=== PATIENT | female | born 1975 | race Caucasian/White ===

== ENCOUNTER → 2018-09-16 | Outpatient (CLI) | payer OTHER ==
--- NOTE | 2018-09-17 07:09 | REP ---
Clinical: Abnormal uterine bleeding . Technique: Transabdominal pelvic ultrasound followed by transvaginal examination for better evaluation of the endometrium and adnexa. Findings: Bladder is unremarkable and measures 9.6 x 9.5 x 7.1 cm . Normal anteverted uterus measures 11.1 x 3.9 x 5.1 cm . The endometrial complex measures 14.7 mm thickness. No discrete uterine or endometrial abnormalities are appreciated. Bilateral ovaries are normal in appearance. Right ovary measures 2.3 x 1.4 x 1.7 cm ; Left ovary measures 2.9 x 1.9 x 2.7 cm with 1.4 cm dominant follicle. No pelvic fluid or adnexal mass lesion . Impression: 1. normal pelvic ultrasound. Electronically Signed by Lalo Santiago MD 09/17/2018 07:01 A
== END ==
LOC: M RAD 10:12
PROVIDERS: ATTEND Specialist
DX: N93.9 Abnormal uterine and vaginal bleeding, unspecified (principal)

== ENCOUNTER 2018-10-23 12:46 | Day surgery (SDC) | payer OTHER ==
[~2018-10-23] VITALS: Ht 167.6 cm; Wt 99.3 kg
[~2018-10-23 12:46] MED LIST: CVS400CA PO; LIDOCAINE 1% MDV 20ML VIAL SQ PRN; LR 1,000 ML IV ONE; VITA500T PO; VITA500T3 PO; ZANTTAB PO
[2018-10-23 13:24] LABS: URINE PREG TEST NEGATIVE (NEGATIVE)
[2018-10-23 13:38] LABS: HEMATOCRIT 39.1 % (36.0-47.0); HEMOGLOBIN 12.9 g/dl (12.0-15.5); MEAN CORPUSCULAR HEMOGLOBIN 30.9 pg (27.0-33.0); MEAN CORPUSCULAR VOLUME 93.8 fl (80.0-96.0); PLATELET COUNT, AUTOMATED 296 10^3/uL (150-450); RED BLOOD COUNT 4.17 10^6/uL (4.00-5.40)
[2018-10-23] MEDS ORDERED: ONDANSETRON 4MG/2ML VIAL (J2405) As Ordered ONE (14:11)
[2018-10-23] MEDS ORDERED: dexameTHASONE 4 MG/ML 1ML VIAL (J1100) As Ordered ONE (14:11)
[2018-10-23] MEDS ORDERED: PROPOFOL 200 MG/20 ML VIAL As Ordered ONE ×2 (14:11→14:57)
[2018-10-23] MEDS ORDERED: LIDOCAINE 2% INJ 100 MG/5 ML SDV (FOR ANES.) As Ordered ONE (14:11)
[2018-10-23] MEDS ORDERED: KETOROLAC 60 MG/2 ML VIAL (J1885) As Ordered ONE (14:11)
[2018-10-23] MEDS ORDERED: fentaNYL 100 MCG/2 ML INJECTION (J3010) As Ordered ONE (14:12)
[2018-10-23] MEDS ORDERED: MIDAZOLAM INJ 2 MG/2 ML VIAL (J2250) As Ordered ONE (14:12)
[2018-10-23] MEDS ORDERED: LIDOCAINE 1% SDV INJ 30 ML VIAL As Ordered ONE (14:15)
[2018-10-23] MEDS ORDERED: ONDANSETRON 4MG/2ML VIAL (J2405) IV PRN (15:45)
[2018-10-23] MEDS ORDERED: fentaNYL 100 MCG/2 ML INJECTION (J3010) IV PRN (15:45)
[2018-10-23] MEDS ORDERED: LR 1,000 ML IV SCH ×2 (15:45)
[2018-10-23] MEDS ORDERED: PERCOCET 5MG/325MG TAB PO PRN ×2 (15:45)
[2018-10-23 16:31] VITALS: BP 136/81
--- NOTE | 2018-10-25 11:04 | RO ---
DATE OF PROCEDURE: 10/23/2018 PREPROCEDURE DIAGNOSIS: Menorrhagia. POSTPROCEDURE DIAGNOSIS: Menorrhagia. PROCEDURE: Hysteroscopy, dilation and curettage (D and C), NovaSure endometrial ablation. SURGEON: Raza Cochran MD HUMAN SERVICE COORDINATOR: ANESTHESIA: General endotracheal. ESTIMATED BLOOD LOSS: Minimal. URINE OUTPUT: 100 mL. FINDINGS: Normal appearing endometrial cavity. DESCRIPTION OF PROCEDURE: The patient was taken to the operating room where general endotracheal anesthesia was induced. She was prepped and draped in a sterile fashion in the dorsal lithotomy position. The bladder was emptied with a catheter. Speculum was placed in the vagina. The anterior lip of the cervix was grasped with a tenaculum. Cervix was dilated with tapered dilators. Diagnostic hysteroscope using normal saline as a distention medium was placed through the internal os. Visualization of the endometrial cavity revealed the findings noted above. The hysteroscope was removed. Sharp curettage performed, and the specimen was sent for pathology. The NovaSure device was assembled and found to be in working order. The device was inserted through the internal os and endometrial cavity length was calculated at 4.0 cm. Cavity width was 4.3 cm. Total power setting was 95 dumont. A successful cavity assessment was performed. The NovaSure was activated. Total coagulation time was 1 minute and 40 seconds. The device was removed. The hysteroscope was placed back through the internal os. Visualization of the endometrial cavity revealed excellent coagulation effect throughout the endometrium. All instruments were removed. Sponge and instrument counts were correct.
== END 2018-10-23 16:46 | disposition home or self-care (01) ==
LOC: M SDC 12:46
PROVIDERS: ATTEND Specialist
DX: N92.0 Excessive and frequent menstruation with regular cycle (principal); K21.9 Gastro-esophageal reflux disease without esophagitis; Z79.899 Other long term (current) drug therapy; Z87.891 Personal history of nicotine dependence
CPT/HCPCS: 36415; 58356; 84703; 85027; 88305; J1100; J1885; J2250; J2405; J3010